=== PATIENT | female | born 1980 | race Caucasian/White ===

== ENCOUNTER 2022-10-15 02:24 | Emergency (ER) | payer BC, MEDICAID, SELFPAY ==
[2022-10-15] VITALS (7 sets, daily range): BP systolic 156–211; BP diastolic 109–133; PULSE 56–86; RESP 16–19; TEMP 36.8; O2SAT 95–100; BMI 32.8
--- NOTE | 2022-10-15 02:36 | ECG_ITS ---
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 Measurements Intervals [place] Rate: 87 P: 57 W[place]: 198 QRS: -35 QRSD: 106 T: 71 QT: 376 QTc: 453 Interpretive Statements SINUS RHYTHM LEFT AXIS DEVIATION [QRS AXIS < -30] PATTERN CONSISTENT WITH PULMONARY DISEASE Compared to ECG 07/08/2017 08:28:04 T-wave abnormality no longer present Electronically Signed On 10-15-2022 8:28:31 CDT by Primitivo Ray M.D. [id number]
--- NOTE | 2022-10-15 02:42 | ECG_ITS ---
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 Measurements Intervals [place] Rate: 84 P: 65 DC: 198 QRS: -41 QRSD: 110 T: 71 QT: 371 QTc: 441 Interpretive Statements SINUS RHYTHM LEFT AXIS DEVIATION [QRS AXIS < -30] PATTERN CONSISTENT WITH PULMONARY DISEASE Compared to ECG 07/08/2017 08:28:04 T-wave abnormality no longer present Electronically Signed On 10-15-2022 8:28:29 CDT by Primitivo Ray M.D. [email or web address]
--- NOTE | 2022-10-15 02:42 | CTR_ITS ---
PROCEDURE INFORMATION: Exam: CT Cervical Spine Without Contrast Exam date and time: 10/15/2022 2:49 AM Age: 42 years old Clinical indication: Injury or trauma; Blunt trauma; Patient HX: Syncopal episode with fall at home striking occiput. C/O pain radiating from neck into both upper extremities. ; Additional info: Trauma, radicular pain TECHNIQUE: Imaging protocol: Computed tomography of the cervical spine without contrast. Radiation optimization: All CT scans at this facility use at least one of these dose optimization techniques: automated exposure control; mA and/or kV adjustment per patient size (includes targeted exams where dose is matched to clinical indication); or iterative reconstruction. REPORTING DATA: Count of CT and Cardiac NM exams in prior 12 months: This patient has received 0 known CTs and 0 known cardiac nuclear medicine studies in the 12 months prior to the current study. COMPARISON: CT head wo con* [id number] 10/15/2022 2:46 AM RADIATION DOSE METRICS: Total DLP (mGy-cm): 170.37 FINDINGS: Bones/joints: No acute fracture. Normal alignment. No significant disc bulge or herniation. No severe spinal canal stenosis. No significant neural foraminal narrowing. Mild cervical degenerative change, age-appropriate. Mild lower cervical spinal stenosis. Lungs: Lung apices are normal. Vasculature: Mild vascular calcification. Soft tissues: Unremarkable. CT/CT cervical spin wo con* [id number] IMPRESSION: 1. No acute findings. 2. Mild lower cervical degenerative change and spondylosis with mild spinal stenosis.
--- NOTE | 2022-10-15 02:42 | CTR_ITS ---
PROCEDURE INFORMATION: Exam: CT Head Without Contrast Exam date and time: 10/15/2022 2:46 AM Age: 42 years old Clinical indication: Injury or trauma; Blunt trauma (contusions or hematomas); Syncope and collapse; Patient HX: Syncopal episode with fall at home striking occiput. C/O pain radiating from neck into both upper extremities. ; Additional info: Trauma, headache TECHNIQUE: Imaging protocol: Computed tomography of the head without contrast. Radiation optimization: All CT scans at this facility use at least one of these dose optimization techniques: automated exposure control; mA and/or kV adjustment per patient size (includes targeted exams where dose is matched to clinical indication); or iterative reconstruction. REPORTING DATA: Count of CT and Cardiac NM exams in prior 12 months: This patient has received 0 known CTs and 0 known cardiac nuclear medicine studies in the 12 months prior to the current study. COMPARISON: No relevant prior studies available. RADIATION DOSE METRICS: Total DLP (mGy-cm): 1039.68 FINDINGS: Brain: No focal hemorrhage or midline shift is identified. Cerebral ventricles: No ventriculomegaly or evidence of acute hydrocephalus. Paranasal sinuses: The partially assessed sinuses are grossly clear. Mastoid air cells: Visualized mastoid air cells are well aerated. Bones/joints: No displaced skull fracture is noted. Soft tissues: Unremarkable. CT/CT head wo con* [id number] IMPRESSION: No acute intracranial abnormality.
[2022-10-15 02:50] LABS: Basophils % 0.3 %; Eosinophils % 0.1 %; Hematocrit 38.5 % (37.0-47.0); Hemoglobin 12.4 g/dL (11.5-15.3); Lymphocytes # 1.4 10^3/uL (0.8-4.8); Lymphocytes % 10.4 %; Mean Corpuscular HGB Conc 32.2 g/dL (30.0-36.0); Mean Corpuscular Hemoglobin 26.1 pg (28.0-34.0); Mean Corpuscular Volume 81.1 fl (81-99); Mean Platelet Volume 10.5 fL (7.4-10.4); Monocytes # 0.5 10^3/uL (0.2-0.9); Monocytes % 3.8 %; Neutrophils # 11.14 10^3/uL (1.8-7.7); Nucleated Red Blood Cells % 0 %; Platelet Count 286 10^3/cmm (130-400); Red Blood Count 4.75 10^6/uL (4.1-5.3); Red Cell Distribution Width 14.7 % (12.1-15.1); White Blood Count 13.1 10^3/uL (4.0-10.0)
[2022-10-15 03:00] LABS: HCG, Serum Qual Negative (Negative); INR 0.98 (0.8-1.2)
[2022-10-15 03:01] LABS: Partial Thromboplastin Time 27.7 SECONDS (23.9-36.7)
--- NOTE | 2022-10-15 03:05 | W.ED.NEUROSD ---
HPI - Neuro Symptoms/Deficit General: Chief Complaint: Neuro Symptoms/Deficit Stated Complaint: Possible [place] Time Seen by Provider: 10/15/22 02:31 History of Present Illness: 42-year-old female with a history of hypertension. She was evidently very angry earlier in the evening sometime around 10:00. She had a syncopal versus near syncopal episode at that point and fell from standing. She hit her head, and had instant pain with the inability to move her arms or legs for about 10 to 15 minutes. She regained this slowly. Now she complains of bilateral radicular pain to her upper extremities mainly. Her neck does not hurt terribly bad. She says that she has no headache. No mental status changes. No language problems. No other weakness. Currently, no loss of sensation. She does note that she did not take her blood pressure medicine the last 2 days. Onset (ago): hour(s) Last Observed Normal: 22:00 Timing confirmed by: family member Location: left arm and right arm History of same: No Severity: moderate Quality: burning and other Relieving factors: none Exacerbating factors: none Associated symptoms: Reports tingling and weakness; Deny chest pain, cough, diaphoresis, fevers/chills, headache(s), nausea, seizures, short of breath, vertigo or vomiting Treatments Prior to Arrival: none Review of Systems Const: Denies: fever(s) or diaphoresis Card: Denies: chest pain Resp: Denies: dyspnea, productive cough or non-productive cough GI: Denies: abdominal pain, nausea or vomiting Musc: Reports: neck pain and extremity pain; Denies: back pain Skin/Breast: Denies: rash Neuro: Denies: headache(s) or vertigo NIH stroke score NIHSS: Level Of Consciousness - 1a: 0 Level Of Consciousness Questions - 1b: Both Correct Level Of Consciousness Commands - 1c: Both Correct Best Gaze - 2: Normal Visual Ivan - 3: No Visual Loss Facial Palsy - 4: Normal Motor Arm Right - 5: No Drift Motor Arm Left - 5: No Drift Motor Leg Right - 6: No Drift Motor Leg Left - 6: No Drift Limb Ataxia - 7: Absent Sensory - 8: Normal Best Language - 9: No Aphasia Dysarthia - 10: Normal Extinction And Inattention - 11: 0 Score: Total Score: 0 Physical Exam Const: COMMON NORMALS: no acute distress GENERAL APPEARANCE: cooperative; not ill appearing and not frail appearing HENMT: COMMON NORMALS: normocephalic, atraumatic and Normal external nose present HEAD & SCALP: normocephalic and atraumatic FACE & SINUS: normal facial exam and face symmetric NOSE: Normal external nose present Eye: COMMON NORMALS: Equal, round and reactive pupils present and EOMs intact bilaterally PUPIL: Yes Equal, round and reactive pupils present Neck/C-Spine: GENERAL: Yes trachea midline Chest: CHEST: Yes Symmetrical chest wall rise Resp: COMMON NORMALS: normal respiratory effort, No retractions, No use of accessory muscles and clear to auscultation bilaterally AUSCULTATION: clear to auscultation bilaterally Cardio: COMMON NORMALS: regular rate and regular rhythm RATE: regular rate RHYTHM: regular rhythm GI: COMMON NORMALS: Normal to inspection, nondistended, normoactive bowel sounds present Extremity: COMMON NORMALS: no pedal edema Neuro: IBETH COMA SCALE: document GCS findings [place] coma scale eye opening: Spontaneous [place] coma scale verbal response: Orientated [place] coma scale motor response: Obey commands [place] coma scale total score: 15 SENSORY EXAM: Yes extremities (intact) Psych: COMMON NORMALS: speech normal SPEECH: Yes normal speech Skin: COMMON NORMALS: no rashes or lesions noted GENERAL SKIN EXAM: no rashes or lesions noted Course Vital Signs: Vital signs: Vital Signs Temperature 98.2 F 10/15/22 02:30 Pulse Rate 57 L 10/15/22 04:14 Respiratory Rate 17 10/15/22 04:14 Blood Pressure 183/111 10/15/22 04:14 Pulse Oximetry 97 10/15/22 04:14 Oxygen Delivery Me thod Room Air 10/15/22 04:14 MDM - Neuro Symptoms/Deficit Medical Decision Making 42-year-old female with symptoms of transient quadriparesis that are resolving. She still has some neck pain, and some radicular upper extremity pain. She is also quite hypertensive. She also had a syncopal episode. Vital signs show a blood pressure now 191/129, other vital signs are normal. White blood cell count is 13, the rest of her CBC is normal. BMP is not remarkable. Troponin is 8, and we are now 6 hours or so into her symptom onset. Ethyl alcohol is less than 10. BNP is 267. CT of the head is normal. CT of the cervical spine shows lower cervical degenerative change and spondylosis with mild spinal stenosis, likely the site of her cord stretch/compression and transient quadriparesis. Blood pressure now down to 160s over 100s. Much improved. Patient's symptoms are improved as well. She will be given a steroid taper for the transient quadriparesis. We will add amlodipine to her hypertension regimen if blood pressures remain greater than 150 systolic, and she is encouraged to take her other medication appropriately. Return for any worsening or new symptoms. Lab Data 10/15/22 02:43 10/15/22 02:43 Radiology Impressions Cervical Spine CT 10/15/22 02:42 IMPRESSION: 1. No acute findings. 2. Mild lower cervical degenerative change and spondylosis with mild spinal stenosis. Head CT 10/15/22 02:42 IMPRESSION: No acute intracranial abnormality. Laboratory Results WBC 13.1 10^3/uL (4.0-10.0) H 10/15/22 02:43 RBC 4.75 10^6/uL (4.1-5.3) 10/15/22 02:43 Hgb 12.4 g/dL (11.5-15.3) 10/15/22 02:43 Hct 38.5 % (37.0-47.0) 10/15/22 02:43 MCV 81.1 fl (81-99) 10/15/22 02:43 MCH 26.1 pg (28.0-34.0) L 10/15/22 02:43 MCHC 32.2 g/dL (30.0-36.0) 10/15/22 02:43 RDW 14.7 % (12.1-15.1) 10/15/22 02:43 Plt Count 286 10^3/cmm (130-400) 10/15/22 02:43 MPV 10.5 fL (7.4-10.4) H 10/15/22 02:43 Neut % (Auto) 85.0 % 10/15/22 02:43 Lymph % (Auto) 10.4 % 10/15/22 02:43 [place] % (Auto) 3.8 % 10/15/22 02:43 Eos % (Auto) 0.1 % 10/15/22 02:43 Baso % (Auto) 0.3 % 10/15/22 02:43 Neut # (Auto) 11.14 10^3/uL (1.8-7.7) H 10/15/22 02:43 Lymph # (Auto) 1.4 10^3/uL (0.8-4.8) 10/15/22 02:43 [place] # (Auto) 0.5 10^3/uL (0.2-0.9) 10/15/22 02:43 Eos # (Auto) 0.0 10^3/uL (0.0-0.8) 10/15/22 02:43 Baso # (Auto) 0.0 10^3/uL (0.0-0.1) 10/15/22 02:43 Nucleated RBC % (auto) 0 % 10/15/22 02:43 Nucleated RBCs # 0.0 /100WBC 10/15/22 02:43 PT 13.20 SECONDS (12.1-14.9) 10/15/22 02:43 INR 0.98 (0.8-1.2) 10/15/22 02:43 APTT 27.7 SECONDS (23.9-36.7) 10/15/22 02:43 Sodium 136 mmol/L (136-145) 10/15/22 02:43 Potassium 3.4 mmol/L (3.5-5.1) L 10/15/22 02:43 Chloride 100 mmol/L (98-107) 10/15/22 02:43 Carbon Dioxide 24 mmol/L (22-29) 10/15/22 02:43 Anion Gap 15.4 (5-19) 10/15/22 02:43 BUN 9 mg/dL (6-20) 10/15/22 02:43 Creatinine 0.6 mg/dL (0.5-0.9) 10/15/22 02:43 GFR Calculation 108.6 mL/min (90-130) 10/15/22 02:43 Glucose 122 mg/dL (65-115) H 10/15/22 02:43 Calculated Osmolality 282 mOsm/kg (285-295) L 10/15/22 02:43 Calcium 9.0 mg/dL (8.5-10.5) 10/15/22 02:43 Total Bilirubin 0.5 mg/dL (0.15-1.2) 10/15/22 02:43 AST 12 U/L (0-32) 10/15/22 02:43 ALT 9 U/L (0-33) 10/15/22 02:43 Alkaline Phosphatase 65 U/L (35-105) 10/15/22 02:43 Troponin T Baseline 8 ng/L (0-10) 10/15/22 02:43 NT-Pro-B Natriuret Pep 267 pg/mL (0-125) H 10/15/22 02:43 Total Protein 7.4 g/dL (6.6-8.7) 10/15/22 02:43 Albumin 4.3 g/dL (3.5-5.2) 10/15/22 02:43 Globulin 3.1 g/dL (1.3-4.6) 10/15/22 02:43 HCG, Qual Negative (Negative) 10/15/22 02:43 Ethyl Alcohol < 10 mg/dL (0-10) 10/15/22 02:43 Discharge Plan Discharge Patient Disposition: Home Clinical Impression: Hypertension, Limb paralysis, transient Condition: Stable Prescriptions: New hydrocodone-acetaminophen 5-325 mg tablet 1 tab PO Q8H PRN (Reason: pain) Qty: 7 0RF amlodipine 10 mg tablet 10 mg PO DAILY Qty: 30 0RF methylprednisolone [Medrol ([place])] 4 mg tablets,dose pack See Rx Instructions .ROUTE .COMPLEX Qty: 21 0RF Rx Instructions: orally per package directions Discharge Orders: Discharge ED (Routine); Ordered 10/15/22 Ordered By: Stephane Lyles Referrals: Quan Shell MD [Primary Care Provider] - Patient Instructions: Neurapraxia (ED), Opioid Safety, Pain Management Activity Restrictions/Additional Instructions: Check your blood pressure twice daily. If blood pressures remain greater than 150/90, you may take the medication prescribed. Take your other blood pressure medications faithfully. Report numbers to your physician this coming week. Return for repeated episodes of syncope or passing out, chest discomfort, mental status changes, worsening weakness or paralysis or numbness to any of your extremities despite treatment, other concerning symptoms. Coding Level of Care Code ED Attending Psychiatrist for Boy Collier
[2022-10-15 03:06] LABS: Troponin(5th) Baseline 8 ng/L (0-10)
[2022-10-15 03:13] LABS: Alanine Aminotransferase 9 U/L (0-33); Albumin Level 4.3 g/dL (3.5-5.2); Alkaline Phosphatase 65 U/L (35-105); Anion Gap 15.4 (5-19); Aspartate Amino Transferase 12 U/L (0-32); Blood Urea Nitrogen 9 mg/dL (6-20); Carbon Dioxide 24 mmol/L (22-29); Chloride 100 mmol/L (98-107); Globulin 3.1 g/dL (1.3-4.6); Glomerular Filtration Rate 108.6 mL/min (90-130); Glucose 122 mg/dL (65-115); NT Pro B Type Natriuretic Pept 267 pg/mL (0-125); Osmolality Calculated 282 mOsm/kg (285-295); Potassium 3.4 mmol/L (3.5-5.1); Sodium 136 mmol/L (136-145); Total Bilirubin 0.5 mg/dL (0.15-1.2); Total Protein 7.4 g/dL (6.6-8.7)
[2022-10-15] MEDS: enalaprilat 1.25 mg/mL Inj IVP (03:15)
[2022-10-15] MEDS: labetalol 5 mg/mL SDV 20mL 20 MG IVP ×2 (03:15→03:51)
[2022-10-15 03:17] LABS: Alcohol Level < 10 mg/dL (0-10)
[2022-10-15] MEDS: ketorolac 30 mg/mL INJ IVP (03:35)
[2022-10-15] MEDS: morphine 4 mg/mL SDV 1 mL IVP (03:35)
[2022-10-15] MEDS: ondansetron 2 mg/ML SDV 2 mL 4 MG IVP (03:36)
[2022-10-15] MEDS: dexamethasone 10 mg/mL INJ IVP (03:36)
[2022-10-15] MEDS: amlodipine 10 mg Tablet PO (03:51)
[2022-10-15] MEDS: oxyCODONE-APAP 5-325 mg Tablet 2 TAB PO (04:58)
--- NOTE | 2022-10-15 04:58 | PC.NURSE ---
2 pain pills sent home with patient.
[2022-10-15 05:25] LABS: Troponin 5 2HR 7.93 ng/L (0-10)
[2022-10-15 05:30] LABS: Troponin 5 2HR Delta -0.07 ABS# (0-10)
== END 2022-10-15 05:04 | disposition home or self-care (01) ==
PROVIDERS: Emergency Provider Emergency Medicine; PCP Internal Medicine Cardiovascular Disease
DX: I10 Essential (primary) hypertension (principal); R29.818 Other symptoms and signs involving the nervous system
CPT/HCPCS: 36415; 70450; 72125; 80053; 80307; 83880; 84484; 84703; 85025; 85610; 85730; 93005; 96374; 96375; 96376; 99285; J1100; J1885; J2270; J2405; J3490